=== PATIENT | female | born 1935 | race Caucasian/White ===

== ENCOUNTER → 2016-08-20 | Outpatient (CLI) | payer MEDICARE, OTHER ==
[~2016-08-20] MED LIST: ALDACTONE50 MG PO; ALLEGRA 60MG TA60 MG PO; ANTI-DIARRHEAL2 MG PO; ARICEPT10 MG PO; ASMANEX TW110 MCG/Ac IH; BENADRYL25 M2 PO; CRANBERRY FRUI405 MG PO; FISH OIL500 MG PO; FLEXERIL 1010 MG/TAB PO; GLUCOPHAGE1000 MG PO; GLUCOPHAGE500 MG/TAB PO; GLUCOTROL XL2.5 MG PO; LEVAQUIN 750MG750 M1 PO; LEVOXYL0.05 MG PO; LUTEIN20 M1 PO; MILK THISTLE150 MG PO; NAMENDA 10MG TA10 MG PO; NATURAL IRON65 MG PO; NATURE'S BLEND M3 MG PO; PRENATAL1 TA7 PO; PROAIR HFA0.09 MG/AC IH; PROTONIX 40MG T40 MG PO; REMERON30 MG PO; RESTORIL 1515 MG/CAP PO; TIROSINT75 MC1 PO; TIROSINT75 MCG PO; TRIMPEX100 MG PO; TYLENOL 325MG325 MG PO; VIIBRYD10 MG PO
== END ==
LOC: COL.RAD 10:27
DX: K74.60 Unspecified cirrhosis of liver (principal); R16.1 Splenomegaly, not elsewhere classified; R63.4 Abnormal weight loss; E11.9 Type 2 diabetes mellitus without complications; R18.8 Other ascites
CPT/HCPCS: Q9967

== ENCOUNTER 2017-10-29 14:12 | Outpatient (RCR) | payer MEDICARE, OTHER ==
[~2017-10-29 14:12] MED LIST changes: +CARAFATE 1GM1 G PO; +MACROBID 1100 MG/CAP PO; +MASON NATURAL2000 IU; +NASACORT OTC NS
== END 2017-11-07 15:53 | disposition home or self-care (01) ==
LOC: MKS.ESL.PT 14:12
DX: R42 Dizziness and giddiness (principal)
CPT/HCPCS: G8990-GP; G8991-GP; G8992-GP

== ENCOUNTER 2018-01-23 04:42 | Emergency (ER) | payer MEDICARE, OTHER ==
[~2018-01-23] VITALS: Ht 162.6 cm; Wt 56.8 kg
[2018-01-23 05:19] LABS: HEMOGLOBIN 11.3 g/dl (12.5-16.0); MEAN CELL VOLUME 87 fl (80.0-100.0); MEAN CORPUSCULAR HEMOGLOBIN 29 pg (27.0-31.0); MEAN CORPUSCULAR HGB CONC 34 g/dl (33.0-37.0); MEAN PLATELET VOLUME 11.3 fl (7.4-10.4); RED BLOOD COUNT 3.86 M/mm3 (4.10-5.30); REDCELL DISTRIBUTION WIDTH-CV 15.3 % (11.5-14.5)
[2018-01-23 05:27] LABS: ALBUMIN 3.6 gm/dL (3.5-5.0); CALCIUM 9.5 mg/dL (8.4-10.2); CREATININE, serum 0.83 mg/dL (0.52-1.25); TOTAL PROTEIN 6.5 gm/dL (6.4-8.2)
[2018-01-23 05:30] LABS: HEMATOCRIT 33.6 % (37.0-47.0)
[2018-01-23 05:31] LABS: PLATELET COUNT 32 K/mm3 (130-400)
[2018-01-23 05:52] LABS: BAND 3 % (0-10); BASOPHIL 2 % (0-2); HYPOCHROMIA 1+; LYMPHOCYTE 10 % (20.0-51.0); NEUTROPHILS 73 % (42.0-75.2)
[2018-01-23 05:53] LABS: PLATELET ESTIMATE DECREASED (NORMAL)
[2018-01-23] MEDS ORDERED: RESTORIL 1515 MG/CAP PO (05:59)
[2018-01-23 06:17] LABS: COLLECTION METHOD CATHETER
[2018-01-23 06:28] LABS: MUCOUS Present /lpf; PH 5 (5-8); SQUAMOUS EPITHELIAL 0-2 /hpf; URINE APPEARANCE Hazy; URINE BACTERIA Many /hpf; URINE BILIRUBIN Negative (NEGATIVE); URINE BLOOD Negative (NEGATIVE); URINE COLOR Yellow; URINE GLUCOSE Negative (NEGATIVE); URINE KETONE Trace (NEGATIVE); URINE LEUKOCYTE ESTERASE Trace (NEGATIVE); URINE NITRATE Positive (NEGATIVE); URINE PROTEIN(semi-quant) 1+ (NEGATIVE)
[2018-01-23 06:29] LABS: INR 1.3 (0.8-3.0); PROTHROMBIN TIME 14.5 SECONDS (9.7-12.8)
[2018-01-23 08:15] VITALS: BP 165/85; PULSE 86
== END 2018-01-23 08:23 | disposition short-term general hospital (02) ==
LOC: COL.ER 04:42
PROVIDERS: Emergency Medicine
DX: N39.0 Urinary tract infection, site not specified (principal); M25.551 Pain in right hip; R74.0 Nonspecific elevation of levels of transaminase and lactic acid dehydrogenase [LDH]; Z79.84 Long term (current) use of oral hypoglycemic drugs; G30.9 Alzheimer's disease, unspecified; F02.80 Dementia in other diseases classified elsewhere, unspecified severity, without behavioral disturbance, psychotic disturbance, mood disturbance, and anxiety; W18.39XA Other fall on same level, initial encounter
CPT/HCPCS: J0696; J7030

== ENCOUNTER → 2018-02-13 | Outpatient (CLI) | payer MEDICARE, OTHER ==
[2018-02-13 10:08] LABS: CREATININE, serum 0.92 mg/dL (0.52-1.25)
== END ==
LOC: ZCOL.LAB 09:43
PROVIDERS: Internal Medicine
DX: K74.60 Unspecified cirrhosis of liver (principal)

== ENCOUNTER → 2018-03-20 | Outpatient (CLI) | payer MEDICARE, OTHER | LOC: COL.VAS 09:22 | DX: I35.8 Other nonrheumatic aortic valve disorders (principal); I51.89 Other ill-defined heart diseases ==

== ENCOUNTER 2018-03-25 14:19 | Outpatient (RCR) | payer MEDICARE, OTHER ==
[~2018-03-25 14:19] MED LIST changes: +ALLEGRA 180MG180 MG PO; -ALLEGRA 60MG TA60 MG PO; +CRANBERRY 100 M1 SGL PO; -CRANBERRY FRUI405 MG PO; +FEOSOL45 MG PO; -MASON NATURAL2000 IU; +MASON NATURAL2000 IU PO; -NATURAL IRON65 MG PO
[2018-04-25] MEDS ORDERED: KRILL OIL 3001 EACH PO (21:52)
[2018-04-25] MEDS ORDERED: [UNRECOGNIZED DRUG - OTHER] (21:58)
[2018-04-26] MEDS ORDERED: Slow Fe PO (01:15)
[2018-04-28] MEDS ORDERED: OMNICEF 300MG300 MG PO ×2 (11:52)
[2018-04-29] MEDS ORDERED: CALTRATE-600 W600 MG PO (20:58)
[2018-04-29] MEDS ORDERED: CALCIUM CARBON500 M1 PO (23:47)
[2018-04-29] MEDS ORDERED: MELATIN 3 MG-11 TAB PO (23:48)
[2018-04-29] MEDS ORDERED: PROAIR HFA0.09 MG/AC IH (23:49)
[2018-06-04] MEDS ORDERED: MACROBID 1100 MG/CAP PO (20:57)
[2018-06-05] MEDS ORDERED: FLEXERIL 1010 MG/TAB PO (00:16)
[2018-06-05] MEDS ORDERED: CALTRATE-600 W600 MG PO (00:18)
[2018-06-05] MEDS ORDERED: FLAGYL500 MG PO (15:50)
[2018-06-05] MEDS ORDERED: CIPRO 500MG TA500 MG PO (15:51)
== END 2018-06-23 | disposition home or self-care (01) ==
LOC: MKS.ESL.PT
DX: R42 Dizziness and giddiness (principal); F03.90 Unspecified dementia, unspecified severity, without behavioral disturbance, psychotic disturbance, mood disturbance, and anxiety
CPT/HCPCS: G8978-GP; G8979-GP; G8980-GP

== ENCOUNTER 2018-04-25 21:34 | Inpatient (IN) | payer MEDICARE ==
[~2018-04-25] VITALS: Ht 162.6 cm; Wt 61.0 kg
[2018-04-25 21:51] LABS: COLLECTION METHOD CLEAN CATCH
[2018-04-25] MEDS ORDERED: KRILL OIL 3001 EACH PO (21:52)
[2018-04-25] MEDS ORDERED: [UNRECOGNIZED DRUG - OTHER] (21:58)
[2018-04-25 22:04] LABS: MUCOUS Present /lpf; PH 6 (5-8); SQUAMOUS EPITHELIAL None Seen /hpf; URINE APPEARANCE Hazy; URINE BACTERIA Rare /hpf; URINE BILIRUBIN Negative (NEGATIVE); URINE BLOOD Negative (NEGATIVE); URINE COLOR Yellow; URINE GLUCOSE Negative (NEGATIVE); URINE KETONE Negative (NEGATIVE); URINE LEUKOCYTE ESTERASE 1+ (NEGATIVE); URINE NITRATE Positive (NEGATIVE); URINE PROTEIN(semi-quant) 1+ (NEGATIVE); URINE UROBILINOGEN >=4.0 mg/dL (NEGATIVE)
[2018-04-25 22:37] LABS: INR 1.2 (0.8-3.0); PROTHROMBIN TIME 13.3 SECONDS (9.7-12.8)
[2018-04-25 22:40] LABS: PARTIAL THROMBOPLASTIN TIME 17.9 SECONDS (26.0-37.0)
[2018-04-25 22:42] LABS: ALANINE AMINOTRANSFERASE 48 U/L (9-52); ALBUMIN 3.7 gm/dL (3.5-5.0); ALKALINE PHOSPHATASE 78 U/L (50-136); ANION GAP 12 mmol/L (7-16); AST,SGOT 40 U/L (15-37); BILIRUBIN,TOTAL 2.4 mg/dL (0.0-1.0); BLOOD UREA NITROGEN 26 mg/dL (7-17); CALCIUM 9.3 mg/dL (8.4-10.2); CARBON DIOXIDE 20 mmol/L (22-30); CHLORIDE 104 mmol/L (98-107); CREATININE, serum 0.78 mg/dL (0.52-1.25); GLUCOSE 207 mg/dL (74-106); LIPASE 252 U/L (23-300); SODIUM 136 mmol/L (137-145); TOTAL PROTEIN 6.7 gm/dL (6.4-8.2)
[2018-04-25 22:49] LABS: AMMONIA 47 umol/L (11-35)
[2018-04-25 22:55] LABS: BASO % 0.3 % (0.0-2.0); GRAN # 6.9 (1.4-6.5); GRAN % 88.1 % (42.2-75.2); HEMATOCRIT 34.8 % (37.0-47.0); HEMOGLOBIN 11.7 g/dl (12.5-16.0); LYMPH # 0.3 (1.2-3.4); LYMPH % 3.8 % (20.0-51.0); MEAN CELL VOLUME 90 fl (80.0-100.0); MEAN CORPUSCULAR HEMOGLOBIN 30 pg (27.0-31.0); MEAN CORPUSCULAR HGB CONC 34 g/dl (33.0-37.0); MEAN PLATELET VOLUME 11.3 fl (7.4-10.4); MONO # 0.6 (0.1-0.6); MONO % 7.4 % (1.7-9.3); PLATELET COUNT 34 K/mm3 (130-400); RED BLOOD COUNT 3.89 M/mm3 (4.10-5.30); REDCELL DISTRIBUTION WIDTH-CV 14.9 % (11.5-14.5)
[2018-04-25 22:55] LABS: TROPONIN-I < 0.012 ng/mL (0.000-0.034)
[2018-04-26] VITALS (380 sets, daily range): BP systolic 110–144; BP diastolic 48–62; PULSE 76–101; TEMP 98.4–100.2; O2SAT 59–100
[2018-04-26] MEDS ORDERED: Slow Fe PO (01:15)
[2018-04-26 02:31] LABS: ARTERIAL BLD GAS O2 SATURATION 96.2 % (92-100); ARTERIAL BLD GAS TCO2 CT 17.7; ARTERIAL BLOOD GAS BASE EXCESS -5.6 (-2-2); ARTERIAL BLOOD GAS HCO3 16.9 meq/L (22-26); ARTERIAL BLOOD GAS PCO2 24.8 mmHg (35-45); ARTERIAL BLOOD GAS PO2 89.4 mmHg (80-100); ARTERIAL BLOOD GAS pH 7.45 (7.35-7.45)
[2018-04-26 05:25] LABS: BASO % 0.5 % (0.0-2.0); GRAN # 4.8 (1.4-6.5); GRAN % 83.9 % (42.2-75.2); LYMPH # 0.3 (1.2-3.4); MEAN CELL VOLUME 90 fl (80.0-100.0); MEAN CORPUSCULAR HEMOGLOBIN 30 pg (27.0-31.0); MEAN CORPUSCULAR HGB CONC 33 g/dl (33.0-37.0); MEAN PLATELET VOLUME 10.9 fl (7.4-10.4); MONO # 0.5 (0.1-0.6); MONO % 9.2 % (1.7-9.3); RED BLOOD COUNT 3.33 M/mm3 (4.10-5.30); REDCELL DISTRIBUTION WIDTH-CV 14.8 % (11.5-14.5)
[2018-04-26 05:27] LABS: HEMATOCRIT 30.1 % (37.0-47.0)
[2018-04-26 05:29] LABS: PLATELET COUNT 29 K/mm3 (130-400)
[2018-04-26 05:37] LABS: INR 1.4 (0.8-3.0)
[2018-04-26 05:43] LABS: ALBUMIN 2.6 gm/dL (3.5-5.0); CALCIUM 8.4 mg/dL (8.4-10.2); CREATININE, serum 0.73 mg/dL (0.52-1.25); POTASSIUM 3.8 mmol/L (3.4-5.0)
[2018-04-27 04:03] VITALS: BP 126/54; PULSE 80; TEMP 98.4
[2018-04-27 06:01] LABS: BASO % 0.7 % (0.0-2.0); GRAN # 3.3 (1.4-6.5); GRAN % 76.5 % (42.2-75.2); LYMPH # 0.5 (1.2-3.4); LYMPH % 10.6 % (20.0-51.0); MEAN CELL VOLUME 91 fl (80.0-100.0); MEAN CORPUSCULAR HGB CONC 33 g/dl (33.0-37.0); MEAN PLATELET VOLUME 11.6 fl (7.4-10.4); MONO # 0.5 (0.1-0.6); RED BLOOD COUNT 3.24 M/mm3 (4.10-5.30); REDCELL DISTRIBUTION WIDTH-CV 15.2 % (11.5-14.5)
[2018-04-27 06:03] LABS: HEMATOCRIT 29.4 % (37.0-47.0); HEMOGLOBIN 9.7 g/dl (12.5-16.0); MEAN CORPUSCULAR HEMOGLOBIN 30 pg (27.0-31.0)
[2018-04-27 06:04] LABS: PLATELET COUNT 28 K/mm3 (130-400)
[2018-04-27 06:30] LABS: INR 1.4 (0.8-3.0); PROTHROMBIN TIME 16.3 SECONDS (9.7-12.8)
[2018-04-27 06:32] LABS: ALBUMIN 2.6 gm/dL (3.5-5.0); BILIRUBIN,TOTAL 1.5 mg/dL (0.0-1.0); CALCIUM 8.1 mg/dL (8.4-10.2); CREATININE, serum 0.77 mg/dL (0.52-1.25); POTASSIUM 3.6 mmol/L (3.4-5.0); TOTAL PROTEIN 5.3 gm/dL (6.4-8.2)
[2018-04-27 08:17] VITALS: BP 127/44; PULSE 81; TEMP 98.2
[2018-04-27 11:36] VITALS: BP 125/42; PULSE 76; TEMP 97.2
[2018-04-27 16:55] VITALS: BP 131/46; PULSE 92; TEMP 98.7
[2018-04-27 19:48] VITALS: BP 135/60; PULSE 94; TEMP 98.5
[2018-04-28 01:14] VITALS: BP 132/75; PULSE 77; TEMP 98.5
[2018-04-28 04:34] VITALS: BP 105/50; PULSE 84; TEMP 98.2
[2018-04-28 06:33] LABS: BASO % 0.9 % (0.0-2.0); GRAN # 2.7 (1.4-6.5); GRAN % 78.5 % (42.2-75.2); LYMPH # 0.4 (1.2-3.4); LYMPH % 10.4 % (20.0-51.0); MEAN CELL VOLUME 90 fl (80.0-100.0); MEAN CORPUSCULAR HGB CONC 33 g/dl (33.0-37.0); MEAN PLATELET VOLUME 11.4 fl (7.4-10.4); MONO # 0.3 (0.1-0.6); MONO % 9.9 % (1.7-9.3); RED BLOOD COUNT 3.24 M/mm3 (4.10-5.30); REDCELL DISTRIBUTION WIDTH-CV 14.7 % (11.5-14.5)
[2018-04-28 06:40] LABS: INR 1.3 (0.8-3.0); PROTHROMBIN TIME 14.6 SECONDS (9.7-12.8)
[2018-04-28 06:41] LABS: ALBUMIN 2.5 gm/dL (3.5-5.0); CREATININE, serum 0.85 mg/dL (0.52-1.25); POTASSIUM 3.8 mmol/L (3.4-5.0); TOTAL PROTEIN 5.2 gm/dL (6.4-8.2)
[2018-04-28 07:01] VITALS: BP 144/60; PULSE 90; TEMP 98
[2018-04-28 08:05] LABS: HEMATOCRIT 29.1 % (37.0-47.0); HEMOGLOBIN 9.5 g/dl (12.5-16.0); MEAN CORPUSCULAR HEMOGLOBIN 29 pg (27.0-31.0); PLATELET COUNT 33 K/mm3 (130-400)
[2018-04-28 11:06] VITALS: BP 127/53; PULSE 85; TEMP 98.3
[2018-04-28] MEDS ORDERED: OMNICEF 300MG300 MG PO ×2 (11:52)
[2018-04-29] MEDS ORDERED: CALTRATE-600 W600 MG PO (20:58)
[2018-04-29] MEDS ORDERED: CALCIUM CARBON500 M1 PO (23:47)
[2018-04-29] MEDS ORDERED: MELATIN 3 MG-11 TAB PO (23:48)
[2018-04-29] MEDS ORDERED: PROAIR HFA0.09 MG/AC IH (23:49)
== END 2018-04-28 13:55 | disposition home health service (06) | DRG 871 ==
LOC: COL.ER 21:34 → ICU 23:10 → MEDICAL 23:10 → EDBEDREQ 23:30 → MEDICAL 04-26 17:38
PROVIDERS: Emergency Medicine; Nurse Practitioner Family
DX: A41.9 Sepsis, unspecified organism (principal); G93.41 Metabolic encephalopathy; N39.0 Urinary tract infection, site not specified; I85.10 Secondary esophageal varices without bleeding; E87.2 Acidosis; Z66 Do not resuscitate; R65.20 Severe sepsis without septic shock; B96.20 Unspecified Escherichia coli [E. coli] as the cause of diseases classified elsewhere; E11.9 Type 2 diabetes mellitus without complications; D69.59 Other secondary thrombocytopenia; K74.60 Unspecified cirrhosis of liver; J45.909 Unspecified asthma, uncomplicated; F03.90 Unspecified dementia, unspecified severity, without behavioral disturbance, psychotic disturbance, mood disturbance, and anxiety; Z85.3 Personal history of malignant neoplasm of breast
CPT/HCPCS: 99223-AI; 99231-AI; 99239; A4216; A4314; J0692; J0696; J1815; J7030

== ENCOUNTER 2018-04-29 19:38 | Observation (INO) | payer MEDICARE ==
[~2018-04-29] VITALS: Ht 162.6 cm; Wt 56.8 kg
[~2018-04-29 19:38] MED LIST changes: +KRILL OIL 3001 EACH PO; +OMNICEF 300MG300 MG PO; +Slow Fe PO; +[UNRECOGNIZED DRUG - OTHER]
[2018-04-29 20:08] LABS: BASO % 0.3 % (0.0-2.0); GRAN # 5.9 (1.4-6.5); GRAN % 87.1 % (42.2-75.2); HEMOGLOBIN 10.2 g/dl (12.5-16.0); LYMPH # 0.2 (1.2-3.4); LYMPH % 3.5 % (20.0-51.0); MEAN CELL VOLUME 90 fl (80.0-100.0); MEAN CORPUSCULAR HEMOGLOBIN 30 pg (27.0-31.0); MEAN CORPUSCULAR HGB CONC 33 g/dl (33.0-37.0); MEAN PLATELET VOLUME 10.7 fl (7.4-10.4); MONO # 0.6 (0.1-0.6); MONO % 8.5 % (1.7-9.3); RED BLOOD COUNT 3.44 M/mm3 (4.10-5.30); REDCELL DISTRIBUTION WIDTH-CV 14.9 % (11.5-14.5)
[2018-04-29 20:09] LABS: HEMATOCRIT 30.9 % (37.0-47.0)
[2018-04-29 20:11] LABS: PLATELET COUNT 44 K/mm3 (130-400)
[2018-04-29 20:19] LABS: BILIRUBIN,TOTAL 1.9 mg/dL (0.0-1.0); C-REACTIVE PROTEIN 4.6 mg/dL (0.0-0.9); CALCIUM 8.8 mg/dL (8.4-10.2); CREATININE, serum 0.83 mg/dL (0.52-1.25); POTASSIUM 4.1 mmol/L (3.4-5.0); TOTAL PROTEIN 5.7 gm/dL (6.4-8.2)
[2018-04-29] MEDS ORDERED: CALTRATE-600 W600 MG PO (20:58)
[2018-04-29] MEDS ORDERED: CALCIUM CARBON500 M1 PO (23:47)
[2018-04-29] MEDS ORDERED: MELATIN 3 MG-11 TAB PO (23:48)
[2018-04-29] MEDS ORDERED: PROAIR HFA0.09 MG/AC IH (23:49)
[2018-04-30 02:14] LABS: INR 1.2 (0.8-3.0); PROTHROMBIN TIME 14.1 SECONDS (9.7-12.8)
[2018-04-30 04:40] VITALS: BP 126/68; PULSE 84; TEMP 99.2
[2018-04-30 04:55] LABS: COLLECTION METHOD CLEAN CATCH
[2018-04-30 05:07] LABS: MUCOUS Present /lpf; PH 5 (5-8); SQUAMOUS EPITHELIAL None Seen /hpf; URINE APPEARANCE Clear; URINE BACTERIA None Seen /hpf; URINE BILIRUBIN Negative (NEGATIVE); URINE BLOOD Negative (NEGATIVE); URINE COLOR Amber; URINE GLUCOSE 1+ (NEGATIVE); URINE KETONE Trace (NEGATIVE); URINE LEUKOCYTE ESTERASE Negative (NEGATIVE); URINE NITRATE Negative (NEGATIVE); URINE PROTEIN(semi-quant) 1+ (NEGATIVE); URINE RBC 20-50 /hpf
[2018-04-30 07:18] VITALS: BP 117/52; PULSE 89; TEMP 99.8
[2018-04-30 12:39] VITALS: BP 105/57; PULSE 72; TEMP 98.9
[2018-04-30 15:25] VITALS: BP 125/56; PULSE 80; TEMP 97.8
[2018-04-30 19:20] VITALS: BP 111/47; PULSE 82; TEMP 99.3
[2018-05-01 00:17] VITALS: BP 122/50; PULSE 85
[2018-05-01 03:25] VITALS: BP 125/54; TEMP 99.2
[2018-05-01 07:25] VITALS: BP 113/51; PULSE 80; TEMP 98.5
[2018-05-01 07:55] LABS: BASO % 0.7 % (0.0-2.0); GRAN # 2.1 (1.4-6.5); GRAN % 75.3 % (42.2-75.2); LYMPH # 0.3 (1.2-3.4); LYMPH % 10.7 % (20.0-51.0); MEAN CELL VOLUME 90 fl (80.0-100.0); MEAN CORPUSCULAR HGB CONC 33 g/dl (33.0-37.0); MEAN PLATELET VOLUME 11.2 fl (7.4-10.4); MONO # 0.4 (0.1-0.6); MONO % 12.9 % (1.7-9.3); RED BLOOD COUNT 2.94 M/mm3 (4.10-5.30)
[2018-05-01 07:57] LABS: HEMOGLOBIN 8.8 g/dl (12.5-16.0); MEAN CORPUSCULAR HEMOGLOBIN 30 pg (27.0-31.0)
[2018-05-01 07:58] LABS: HEMATOCRIT 26.4 % (37.0-47.0); PLATELET COUNT 35 K/mm3 (130-400)
[2018-05-01 08:07] LABS: CALCIUM 7.8 mg/dL (8.4-10.2); CREATININE, serum 0.86 mg/dL (0.52-1.25); POTASSIUM 4.1 mmol/L (3.4-5.0)
[2018-05-01 12:47] VITALS: BP 121/59; PULSE 74; TEMP 98.7
[2018-05-01 16:08] VITALS: BP 121/59; PULSE 74; TEMP 98.7
== END 2018-05-01 16:44 ==
LOC: COL.ER 19:38 → MEDICAL 20:38
PROVIDERS: Family Medicine; Nurse Practitioner; Physician Assistant
DX: E87.2 Acidosis (principal); N39.0 Urinary tract infection, site not specified; R53.81 Other malaise; G93.41 Metabolic encephalopathy; D69.6 Thrombocytopenia, unspecified; K74.69 Other cirrhosis of liver; E11.9 Type 2 diabetes mellitus without complications; F03.90 Unspecified dementia, unspecified severity, without behavioral disturbance, psychotic disturbance, mood disturbance, and anxiety; J45.909 Unspecified asthma, uncomplicated; E03.9 Hypothyroidism, unspecified; K21.9 Gastro-esophageal reflux disease without esophagitis; F32.9 Major depressive disorder, single episode, unspecified; F41.9 Anxiety disorder, unspecified; Z88.0 Allergy status to penicillin; Z91.040 Latex allergy status; Z79.4 Long term (current) use of insulin; Z23 Encounter for immunization; Z90.49 Acquired absence of other specified parts of digestive tract; Z90.10 Acquired absence of unspecified breast and nipple; Z85.3 Personal history of malignant neoplasm of breast; Z85.828 Personal history of other malignant neoplasm of skin; Z80.0 Family history of malignant neoplasm of digestive organs; Z82.49 Family history of ischemic heart disease and other diseases of the circulatory system
CPT/HCPCS: A4216; G0378; G8978-GP; G8979-GP; G8987-GO; G8988-GO; G9168-GN; G9169-GN; J0692; J0696; J1815; J2405; J7030; Q9967

== ENCOUNTER → 2018-05-09 | Outpatient (REF) ==
[~2018-05-09] MED LIST changes: +CALCIUM CARBON500 M1 PO; +CALTRATE-600 W600 MG PO; +MELATIN 3 MG-11 TAB PO
== END ==
LOC: ZCOL.LAB 15:30
DX: K59.8 Other specified functional intestinal disorders (principal); R19.7 Diarrhea, unspecified; R53.81 Other malaise

== ENCOUNTER → 2018-05-09 | Outpatient (CLI) | payer MEDICARE | LOC: ZCOL.LAB 16:09 | DX: K59.8 Other specified functional intestinal disorders (principal); R19.7 Diarrhea, unspecified; R53.81 Other malaise ==

== ENCOUNTER → 2018-05-21 | Outpatient (CLI) | payer MEDICARE, OTHER | LOC: COL.RAD 08:44 | DX: K74.60 Unspecified cirrhosis of liver (principal); K76.6 Portal hypertension; R16.1 Splenomegaly, not elsewhere classified; Z87.440 Personal history of urinary (tract) infections | CPT/HCPCS: 31860; A4314 ==

== ENCOUNTER 2018-06-04 19:03 | Observation (INO) | payer MEDICARE, OTHER ==
[~2018-06-04] VITALS: Ht 162.6 cm; Wt 56.8 kg
[2018-06-04 19:39] LABS: BASO % 0.4 % (0.0-2.0); GRAN % 86.3 % (42.2-75.2); LYMPH # 0.3 (1.2-3.4); LYMPH % 4.7 % (20.0-51.0); MEAN CELL VOLUME 87 fl (80.0-100.0); MEAN CORPUSCULAR HEMOGLOBIN 29 pg (27.0-31.0); MEAN CORPUSCULAR HGB CONC 33 g/dl (33.0-37.0); MEAN PLATELET VOLUME 11.6 fl (7.4-10.4); MONO # 0.6 (0.1-0.6); MONO % 8.3 % (1.7-9.3); REDCELL DISTRIBUTION WIDTH-CV 14.6 % (11.5-14.5)
[2018-06-04 19:42] LABS: COLLECTION METHOD CATHETER
[2018-06-04 19:44] LABS: HEMATOCRIT 33.1 % (37.0-47.0)
[2018-06-04 19:46] LABS: PLATELET COUNT 30 K/mm3 (130-400)
[2018-06-04 19:47] LABS: PH 7 (5-8); SQUAMOUS EPITHELIAL 0-2 /hpf; URINE APPEARANCE Clear; URINE BACTERIA None Seen /hpf; URINE BILIRUBIN Negative (NEGATIVE); URINE BLOOD Negative (NEGATIVE); URINE COLOR Yellow; URINE GLUCOSE Negative (NEGATIVE); URINE KETONE Negative (NEGATIVE); URINE LEUKOCYTE ESTERASE Negative (NEGATIVE); URINE NITRATE Negative (NEGATIVE); URINE PROTEIN(semi-quant) 1+ (NEGATIVE); URINE RBC 0-2 /hpf; URINE UROBILINOGEN >=4.0 mg/dL (NEGATIVE)
[2018-06-04 19:48] LABS: ALBUMIN 3.3 gm/dL (3.5-5.0); BILIRUBIN,TOTAL 2.7 mg/dL (0.0-1.0); C-REACTIVE PROTEIN 3.1 mg/dL (0.0-0.9); CALCIUM 8.8 mg/dL (8.4-10.2); CREATININE, serum 0.92 mg/dL (0.52-1.25); POTASSIUM 4.3 mmol/L (3.4-5.0)
[2018-06-04] MEDS ORDERED: MACROBID 1100 MG/CAP PO (20:57)
[2018-06-04 22:43] LABS: INR 1.4 (0.8-3.0)
[2018-06-04 23:22] VITALS: BP 111/38; PULSE 65; TEMP 97.6
[2018-06-05] MEDS ORDERED: FLEXERIL 1010 MG/TAB PO (00:16)
[2018-06-05] MEDS ORDERED: CALTRATE-600 W600 MG PO (00:18)
[2018-06-05 04:42] VITALS: BP 129/45; PULSE 64; TEMP 97.6
[2018-06-05 06:21] LABS: BASO % 0.7 % (0.0-2.0); GRAN % 74.7 % (42.2-75.2); LYMPH # 0.4 (1.2-3.4); LYMPH % 13.9 % (20.0-51.0); MEAN CELL VOLUME 91 fl (80.0-100.0); MEAN CORPUSCULAR HGB CONC 32 g/dl (33.0-37.0); MEAN PLATELET VOLUME 12.1 fl (7.4-10.4); MONO # 0.3 (0.1-0.6); MONO % 10.3 % (1.7-9.3); RED BLOOD COUNT 3.31 M/mm3 (4.10-5.30); REDCELL DISTRIBUTION WIDTH-CV 14.6 % (11.5-14.5)
[2018-06-05 06:24] LABS: HEMATOCRIT 30.1 % (37.0-47.0); HEMOGLOBIN 9.7 g/dl (12.5-16.0); MEAN CORPUSCULAR HEMOGLOBIN 29 pg (27.0-31.0)
[2018-06-05 06:26] LABS: PLATELET COUNT 25 K/mm3 (130-400)
[2018-06-05 06:31] LABS: ALBUMIN 2.6 gm/dL (3.5-5.0); BILIRUBIN,TOTAL 1.6 mg/dL (0.0-1.0); CALCIUM 8.2 mg/dL (8.4-10.2); CREATININE, serum 0.86 mg/dL (0.52-1.25); POTASSIUM 3.7 mmol/L (3.4-5.0); TOTAL PROTEIN 5.3 gm/dL (6.4-8.2)
[2018-06-05 07:38] VITALS: BP 105/43; PULSE 67; TEMP 98.1
[2018-06-05 11:18] VITALS: BP 111/44; PULSE 67; TEMP 98.8
[2018-06-05] MEDS ORDERED: FLAGYL500 MG PO (15:50)
[2018-06-05] MEDS ORDERED: CIPRO 500MG TA500 MG PO (15:51)
[2018-06-05 16:39] VITALS: BP 106/36; PULSE 72; TEMP 98.4
== END 2018-06-05 20:00 | disposition home or self-care (01) ==
LOC: COL.ER 19:03 → MEDICAL 21:51
PROVIDERS: Emergency Medicine; Nurse Practitioner Family
DX: K74.60 Unspecified cirrhosis of liver (principal); I85.10 Secondary esophageal varices without bleeding; D69.6 Thrombocytopenia, unspecified; E11.9 Type 2 diabetes mellitus without complications; E03.9 Hypothyroidism, unspecified; F03.90 Unspecified dementia, unspecified severity, without behavioral disturbance, psychotic disturbance, mood disturbance, and anxiety; N39.0 Urinary tract infection, site not specified; R53.81 Other malaise; D53.9 Nutritional anemia, unspecified; Z90.49 Acquired absence of other specified parts of digestive tract; Z90.10 Acquired absence of unspecified breast and nipple; Z90.710 Acquired absence of both cervix and uterus; Z79.84 Long term (current) use of oral hypoglycemic drugs; Z88.0 Allergy status to penicillin; Z91.040 Latex allergy status; Z82.49 Family history of ischemic heart disease and other diseases of the circulatory system; Z80.0 Family history of malignant neoplasm of digestive organs
CPT/HCPCS: G0378; G8978-GP; G8979-GP; G8987-GO; G8988-GO; J0696; J1815; J7030; Q9967

== ENCOUNTER 2018-07-21 19:10 | Emergency (ER) | payer MEDICARE, OTHER ==
[~2018-07-21] VITALS: Ht 165.1 cm; Wt 56.8 kg
[~2018-07-21 19:10] MED LIST changes: +CIPRO 500MG TA500 MG PO; +FLAGYL500 MG PO
[2018-07-21 19:14] VITALS: TEMP 99.8
[2018-07-21 19:52] LABS: BASO % 0.3 % (0.0-2.0); GRAN # 5.6 (1.4-6.5); GRAN % 87.4 % (42.2-75.2); HEMOGLOBIN 11.2 g/dl (12.5-16.0); LYMPH # 0.3 (1.2-3.4); LYMPH % 4.2 % (20.0-51.0); MEAN CELL VOLUME 86 fl (80.0-100.0); MEAN CORPUSCULAR HEMOGLOBIN 29 pg (27.0-31.0); MEAN CORPUSCULAR HGB CONC 34 g/dl (33.0-37.0); MEAN PLATELET VOLUME 11.6 fl (7.4-10.4); MONO # 0.5 (0.1-0.6); MONO % 7.5 % (1.7-9.3); RED BLOOD COUNT 3.86 M/mm3 (4.10-5.30); REDCELL DISTRIBUTION WIDTH-CV 15.6 % (11.5-14.5)
[2018-07-21 20:07] LABS: LACTIC ACID 1.5 mmol/L (0.4-2.0)
[2018-07-21 20:09] LABS: ALBUMIN 3.4 gm/dL (3.5-5.0); BILIRUBIN,TOTAL 2.4 mg/dL (0.0-1.0); C-REACTIVE PROTEIN 4.5 mg/dL (0.0-0.9); CALCIUM 8.7 mg/dL (8.4-10.2); CREATININE, serum 1.08 mg/dL (0.52-1.25); POTASSIUM 4.5 mmol/L (3.4-5.0); TOTAL PROTEIN 6.3 gm/dL (6.4-8.2)
[2018-07-21 20:10] LABS: PLATELET COUNT 31 K/mm3 (130-400)
[2018-07-21 21:12] LABS: COLLECTION METHOD CATHETER
[2018-07-21 21:23] LABS: PH 6 (5-8); SQUAMOUS EPITHELIAL None Seen /hpf; URINE APPEARANCE Clear; URINE BACTERIA None Seen /hpf; URINE BILIRUBIN Negative (NEGATIVE); URINE BLOOD Negative (NEGATIVE); URINE COLOR Yellow; URINE GLUCOSE 3+ (NEGATIVE); URINE KETONE Trace (NEGATIVE); URINE LEUKOCYTE ESTERASE Negative (NEGATIVE); URINE NITRATE Negative (NEGATIVE); URINE PROTEIN(semi-quant) Negative (NEGATIVE); URINE RBC 0-2 /hpf; URINE UROBILINOGEN Negative (NEGATIVE)
[2018-07-21 21:54] VITALS: BP 105/59; PULSE 72
== END 2018-07-21 22:31 | disposition home or self-care (01) ==
LOC: COL.ER 19:10
PROVIDERS: Emergency Medicine
DX: R50.9 Fever, unspecified (principal); R41.0 Disorientation, unspecified; E11.9 Type 2 diabetes mellitus without complications; Z87.440 Personal history of urinary (tract) infections; F03.90 Unspecified dementia, unspecified severity, without behavioral disturbance, psychotic disturbance, mood disturbance, and anxiety; Z79.84 Long term (current) use of oral hypoglycemic drugs
CPT/HCPCS: J0696; J7050

== ENCOUNTER 2018-10-25 22:20 | Inpatient (IN) | payer MEDICARE, OTHER ==
[~2018-10-25] VITALS: Ht 165.1 cm; Wt 56.5 kg
[~2018-10-25 22:20] MED LIST changes: +PRENATAL VITAMI1 TA3 PO; -PRENATAL1 TA7 PO
[2018-10-25] MEDS ORDERED: ONGLYZA2.5 MG PO (23:19)
[2018-10-25] MEDS ORDERED: PROAIR HFA0.09 MG/AC IH (23:35)
[2018-10-25] MEDS ORDERED: FEOSOL45 MG PO (23:39)
[2018-10-25] MEDS ORDERED: MILK THISTLE150 MG PO (23:40)
[2018-10-26] VITALS (502 sets, daily range): BP systolic 106–150; BP diastolic 49–78; PULSE 69–85; TEMP 97.2–98.6; O2SAT 34–100
[2018-10-26 00:58] LABS: BASO % 1.2 % (0.0-2.0); GRAN # 1.7 (1.4-6.5); GRAN % 66.2 % (42.2-75.2); HEMOGLOBIN 10.5 g/dl (12.5-16.0); INR 1.3 (0.8-3.0); LYMPH # 0.4 (1.2-3.4); LYMPH % 15.5 % (20.0-51.0); MEAN CELL VOLUME 90 fl (80.0-100.0); MEAN CORPUSCULAR HEMOGLOBIN 30 pg (27.0-31.0); MEAN CORPUSCULAR HGB CONC 34 g/dl (33.0-37.0); MEAN PLATELET VOLUME 11.2 fl (7.4-10.4); MONO # 0.4 (0.1-0.6); MONO % 16.7 % (1.7-9.3); PROTHROMBIN TIME 14.5 SECONDS (9.7-12.8); RED BLOOD COUNT 3.48 M/mm3 (4.10-5.30); REDCELL DISTRIBUTION WIDTH-CV 15.4 % (11.5-14.5)
[2018-10-26 01:00] LABS: PARTIAL THROMBOPLASTIN TIME 31.1 SECONDS (26.0-37.0)
[2018-10-26 01:04] LABS: ALANINE AMINOTRANSFERASE 29 U/L (9-52); ALBUMIN 3.4 gm/dL (3.5-5.0); ALKALINE PHOSPHATASE 62 U/L (50-136); ANION GAP 11 mmol/L (7-16); AST,SGOT 33 U/L (15-37); BILIRUBIN,TOTAL 1.3 mg/dL (0.0-1.0); BLOOD UREA NITROGEN 26 mg/dL (7-17); C-REACTIVE PROTEIN 1.1 mg/dL (0.0-0.9); CALCIUM 9.6 mg/dL (8.4-10.2); CARBON DIOXIDE 21 mmol/L (22-30); CHLORIDE 106 mmol/L (98-107); GLUCOSE 128 mg/dL (74-106); MAGNESIUM 1.7 mg/dL (1.6-2.3); PHOSPHOROUS 3.2 mg/dL (2.5-4.5); POTASSIUM 4.1 mmol/L (3.4-5.0); SODIUM 138 mmol/L (137-145)
[2018-10-26 01:09] LABS: HEMATOCRIT 31.3 % (37.0-47.0); PLATELET COUNT 35 K/mm3 (130-400)
[2018-10-26 01:11] LABS: COLLECTION METHOD CATHETER
[2018-10-26 01:14] LABS: TROPONIN-I < 0.012 ng/mL (0.000-0.035)
[2018-10-26 01:24] LABS: BUDDING YEAST Present /hpf; PH 5 (5-8); SQUAMOUS EPITHELIAL 0-2 /hpf; URINE APPEARANCE Clear; URINE BACTERIA None Seen /hpf; URINE BILIRUBIN Negative (NEGATIVE); URINE BLOOD Negative (NEGATIVE); URINE COLOR Amber; URINE GLUCOSE Negative (NEGATIVE); URINE KETONE Trace (NEGATIVE); URINE LEUKOCYTE ESTERASE 1+ (NEGATIVE); URINE NITRATE Negative (NEGATIVE); URINE PROTEIN(semi-quant) Negative (NEGATIVE)
[2018-10-26] MEDS ORDERED: CALCIUM CARBON650 M2 PO (02:49)
[2018-10-26] MEDS ORDERED: FORT1000TA PO (02:49)
--- NOTE | 2018-10-26 04:00 | NUR ---
Pt arrived from ER via stretcher. Transferred to bed. No acute distress noted. Daughter in law (DPOA) at bedside. Pts respirations even and unlabored. Lungs clear to auscultation. Abdomen soft, nontender. BS hyperactive. No edema noted. Pedal pulses equal 1+. Pt is alert and oriented. Pupils equal, 4mm with brisk reaction. Pt follows commands. House Decorator strong bilaterally. No neurological deficits noted. Pt denies nay pain at this time. Will continue to monitor.
--- NOTE | 2018-10-26 04:15 | NUR ---
Pt up with 1 assist to C with walker and gait belt. Pt is weak, but gait is steady during transfer. Pt voided hazy, yellow urine.
--- NOTE | 2018-10-26 05:15 | NUR ---
Pt up to BSC with 1 assist, walker and gait belt. Well tolerated by patient. Patient had large BM.
--- NOTE | 2018-10-26 05:30 | NUR ---
Pt up again to BSC with 1 assist. Well tolerated by patient. Patient has anal fissures, which daughter in law reported using diaper cream on at home. Barrier cream applied after pericare completed.
--- NOTE | 2018-10-26 06:30 | NUR ---
Pt up with 1 assist to BSC with walker and gait belt after short nap. Well tolerated by patient. No acute distress noted. VSS. Pt had large liquid stool. Barrier cream applied after pericare. No needs noted.
--- NOTE | 2018-10-26 07:30 | NUR ---
Report received from MEGAN Mills.
[2018-10-26 07:31] LABS: BASO % 1.3 % (0.0-2.0); GRAN # 1.7 (1.4-6.5); GRAN % 71.5 % (42.2-75.2); HEMOGLOBIN 10.9 g/dl (12.5-16.0); LYMPH # 0.4 (1.2-3.4); LYMPH % 15.3 % (20.0-51.0); MEAN CELL VOLUME 91 fl (80.0-100.0); MEAN CORPUSCULAR HEMOGLOBIN 30 pg (27.0-31.0); MEAN CORPUSCULAR HGB CONC 33 g/dl (33.0-37.0); MEAN PLATELET VOLUME 11.6 fl (7.4-10.4); MONO # 0.3 (0.1-0.6); MONO % 11.5 % (1.7-9.3); RED BLOOD COUNT 3.63 M/mm3 (4.10-5.30); REDCELL DISTRIBUTION WIDTH-CV 15.4 % (11.5-14.5)
--- NOTE | 2018-10-26 07:40 | NUR ---
Notified of critical platelet count. Waiting on BMP and lactic acid result before calling doctor.
[2018-10-26 07:44] LABS: PLATELET COUNT 36 K/mm3 (130-400)
[2018-10-26 07:45] LABS: CALCIUM 9.2 mg/dL (8.4-10.2); CREATININE, serum 0.78 (0.52-1.25)
--- NOTE | 2018-10-26 08:00 | NUR ---
Assesement completed. Pt A/Ox3. No complaints at this time. x1 assist to bedside commode with walker. Pt slightly weak but steady gait. Pt has had frequent BMs since lactulose dose received in ER. Pt back to bed. Pt refused breakfast at this time. Call light in reach.
--- NOTE | 2018-10-26 09:00 | NUR ---
Occupational therapy at bedside.
--- NOTE | 2018-10-26 12:59 | NUR ---
Pt watching tv and eating lunch in bed. No complaints at this time.VSS.
--- NOTE | 2018-10-26 13:24 | NUR ---
SW met with the patient's ctidakyv-er-zuv, Leslye Sherwood (DPOA-HC), to discuss discharge plan. As the patient was resting. The patient lives in [place] with her son (Kannan) and xhaakyjc-pk-hnv. Leslye Sherwood reports that she is the patient's primary caregiver. She reports that the patient primarily uses a walker and has a transport chair, ramps, and a showerchair. She states that they also have [employer] set up, in which there are cameras in the patient's room, kitchen, and bathroom to monitor the patient. The patient's fnzyxgno-bj-nbm reports that she works from [id number] and that her and her will then check the cameras frequently while they are at work. She states that Kannan will be retiring in 11 days and then he will be home at all times. They also have their store associate's daughter come out twice a week for an hour to do exercises with the patient. The patient's PCP is Dr. Denver Arroyo and she receives her medications at the [facility]. The patient's akrktjty-bx-vtf reports no difficulties obtaining her meds. The patient's DPOA-HC is in EMR. The patient's utntpvwk-il-nfi reports that the plan is for the patient to return back home with them upon discharge. No other identified needs at this time, but SW to continue to follow.
--- NOTE | 2018-10-26 19:40 | NUR ---
Report given to MEGAN Gilliam.
--- NOTE | 2018-10-26 21:00 | NUR ---
PT A&O X3. PT AMBULATES WELL WITH WALKER AND STANDY BY ASSIST TO COMMODE. PT HAS A MIX OF LOOSE STOOL AND SEMI-FORMED STOOL. URINE IS RENE IN COLOR AND HAS SOME SEDIMENT. PT CURRENTLY DENIES PAIN, BUT MENTIONS DISCOMFORT FROM BP CUFF AND IV. BP CUFF READJUSTED. IV ASSESSED; NO IRRITATION AND IS RUNNING IV FLUIDS WITH OUT ISSUE OR INFILTRATION.
[2018-10-27] VITALS (385 sets, daily range): BP systolic 102–154; BP diastolic 51–91; PULSE 77–90; TEMP 98.7–99.4; O2SAT 89–100
[2018-10-27 05:42] LABS: BASO % 0.7 % (0.0-2.0); GRAN # 3.6 (1.4-6.5); GRAN % 82.8 % (42.2-75.2); HEMATOCRIT 32.4 % (37.0-47.0); HEMOGLOBIN 10.8 g/dl (12.5-16.0); LYMPH # 0.3 (1.2-3.4); LYMPH % 7.3 % (20.0-51.0); MEAN CELL VOLUME 90 fl (80.0-100.0); MEAN CORPUSCULAR HEMOGLOBIN 30 pg (27.0-31.0); MEAN CORPUSCULAR HGB CONC 33 g/dl (33.0-37.0); MEAN PLATELET VOLUME 10.7 fl (7.4-10.4); MONO # 0.4 (0.1-0.6); MONO % 8.7 % (1.7-9.3); RED BLOOD COUNT 3.62 M/mm3 (4.10-5.30); REDCELL DISTRIBUTION WIDTH-CV 15.1 % (11.5-14.5)
[2018-10-27 05:43] LABS: PLATELET COUNT 41 K/mm3 (130-400)
[2018-10-27 05:56] LABS: ALBUMIN 3.1 gm/dL (3.5-5.0); BILIRUBIN,TOTAL 1.2 mg/dL (0.0-1.0); CALCIUM 8.7 mg/dL (8.4-10.2); CREATININE, serum 0.9 (0.52-1.25); POTASSIUM 4.1 mmol/L (3.4-5.0); TOTAL PROTEIN 5.7 gm/dL (6.4-8.2)
--- NOTE | 2018-10-27 06:32 | NUR ---
PT CALLED NURSE, STATES SHE'S LOST AND THINKS SHE'S IN THE WRONG ROOM. PT ANSWERS CORRECTLY MONTH/YEAR, CITY/STATE, PRES[place] OF [place], BIRTHDATE. PT REASSURED SHE'S IN THE RIGHT PLACE, IN THE HOSPITAL FOR UTI AND RECEIVING ANTIBIOTICS.
--- NOTE | 2018-10-27 07:10 | NUR ---
Patient report recieved from MEGAN Gilliam. Patient sleeping at this time. MIVF infusing at ordered rate to LW IV without complication noted. Care assumed.
--- NOTE | 2018-10-27 10:38 | NUR ---
First visit from the line erector. No needs right now.
--- NOTE | 2018-10-27 12:42 | NUR ---
Dr. Robertson rounds on patient at this time. POC discussed to include transfer to medical floor today. Orders as entered CPOE.
--- NOTE | 2018-10-27 15:05 | NUR ---
Report called to MEGAN Dunlap.
--- NOTE | 2018-10-27 15:11 | NUR ---
KATIA Negro updated to POC and patient transfer to medical room 310.
--- NOTE | 2018-10-27 15:20 | NUR ---
Patient transported to medical room 310. All belongings and chart sent withSiddharth Dunlap RN at bedside and care transferred.
--- NOTE | 2018-10-27 15:29 | NUR ---
Pt arrived to room 310 via with MEGAN Archuleta. Pt able to transfer from the to the floor bed with standby assitance. Oriented to room and call light system. Call light within reach, will continue to monitor.
--- NOTE | 2018-10-27 18:02 | NUR ---
Since arriving to floor the pt has been resting quietly. She has remained free of pain. She is sitting up in the bed watching TV at this time and she denies further needs. Call light within reach.
--- NOTE | 2018-10-27 18:44 | NUR ---
Report given to MEGAN Bryant.
--- NOTE | 2018-10-27 22:52 | NUR ---
Patient assessed around 1949. Denied having pain and discomfort at that time. Patient has been in bed. Bed alarm is on, and has alerted staff when patient was trying to go to the bathroom. Continent so far this shift. Denies having burning, pain, and discomfort with urination. Resting in bed at this time. Call light is within reach.
[2018-10-28 03:54] VITALS: BP 125/51; PULSE 103; TEMP 99
--- NOTE | 2018-10-28 05:33 | NUR ---
Patient has been awake most of the night. Each time this nurse checked on patient, eyes were open. Denied having any needs, and was smiling and pleasant. Has tried getting up to take self to bathroom, and does not remember to call for assistance. Bed alarm notified staff, and staff assisted with toileting. Continent so far this shift. Used walker for ambulation. Urine is clear and yellow. Denies having burning, pain, and discomfort with urination. Denies having feelings of urinary frequency, urgency, and retention. Continues on IV Rocephin per orders. In bed at this time. Call light is within reach. Bed alarm is on. Denies having any needs or concerns at this time.
[2018-10-28 06:17] LABS: BASO % 0.8 % (0.0-2.0); GRAN # 2.7 (1.4-6.5); HEMOGLOBIN 10.4 g/dl (12.5-16.0); LYMPH # 0.5 (1.2-3.4); LYMPH % 12.8 % (20.0-51.0); MEAN CELL VOLUME 89 fl (80.0-100.0); MEAN CORPUSCULAR HEMOGLOBIN 30 pg (27.0-31.0); MEAN CORPUSCULAR HGB CONC 34 g/dl (33.0-37.0); MEAN PLATELET VOLUME 11.2 fl (7.4-10.4); MONO # 0.8 (0.1-0.6); MONO % 19.1 % (1.7-9.3); RED BLOOD COUNT 3.45 M/mm3 (4.10-5.30); REDCELL DISTRIBUTION WIDTH-CV 15.1 % (11.5-14.5)
[2018-10-28 06:20] LABS: HEMATOCRIT 30.8 % (37.0-47.0)
[2018-10-28 06:21] LABS: PLATELET COUNT 36 K/mm3 (130-400)
--- NOTE | 2018-10-28 06:24 | NUR ---
Platelets this morning 36, critical low, but have been critical low since admit. Call placed to [facility]. No new orders at this time.
[2018-10-28 06:32] LABS: ALBUMIN 2.8 gm/dL (3.5-5.0); BILIRUBIN,TOTAL 1.5 mg/dL (0.0-1.0); CALCIUM 8.4 mg/dL (8.4-10.2); CREATININE, serum 0.81 (0.52-1.25); POTASSIUM 3.8 mmol/L (3.4-5.0); TOTAL PROTEIN 5.4 gm/dL (6.4-8.2)
[2018-10-28 07:20] VITALS: BP 143/62; PULSE 77; TEMP 99.1
--- NOTE | 2018-10-28 07:51 | NUR ---
Assessment complete. Pt is alert but unable to answer orientation questions appropriately. Denies having any pain at this time. Breathing is even and unlabored on room air. Tele on. LW INT flushes easily, remains free of complications, and is CDI. Generalized bruising to her back and hips from a past fall. Pt is sitting up in the bed eating her breakfast at this time and she denies further needs. Call light within reach, will continue to monitor.
[2018-10-28 11:10] VITALS: BP 131/56; PULSE 80; TEMP 98.3
[2018-10-28 15:30] VITALS: BP 153/67; PULSE 85; TEMP 98.4
--- NOTE | 2018-10-28 17:51 | NUR ---
Pt has been resting on and off throughout the day. She has remained free of pain. Has been able to walk more with PT today. Pt helped to the restroom; dede provided. Pt is now back in the bed finishing her dinner at this time and she denies further needs. Call light within reach.
[2018-10-28 19:06] VITALS: BP 115/52; PULSE 77; TEMP 97.2
--- NOTE | 2018-10-28 19:13 | NUR ---
Report given to MEGAN Hannah.
--- NOTE | 2018-10-28 19:41 | NUR ---
Patient resting in bed, assessment completed- lungs clear, abomdinal sounds active, pulses +3, cap refill <3 seconds, denies pain. Evening medications amdinistered. Bed alarm on- pt impulsive. No needs at this time.
[2018-10-28 23:28] VITALS: BP 139/88; PULSE 81; TEMP 98.5
[2018-10-29 04:41] VITALS: BP 125/59; PULSE 76; TEMP 98.2
--- NOTE | 2018-10-29 05:14 | NUR ---
Pt slept for most of the night, VSS, afebrile. Bed alarm on, call light in reach. NO needs at this time.
[2018-10-29 06:05] LABS: GRAN # 2.1 (1.4-6.5); GRAN % 67.7 % (42.2-75.2); LYMPH # 0.5 (1.2-3.4); LYMPH % 16.3 % (20.0-51.0); MEAN CELL VOLUME 90 fl (80.0-100.0); MEAN CORPUSCULAR HGB CONC 33 g/dl (33.0-37.0); MONO # 0.5 (0.1-0.6); MONO % 14.7 % (1.7-9.3); RED BLOOD COUNT 3.22 M/mm3 (4.10-5.30); REDCELL DISTRIBUTION WIDTH-CV 15.3 % (11.5-14.5)
[2018-10-29 06:09] LABS: ALBUMIN 2.6 gm/dL (3.5-5.0); BILIRUBIN,TOTAL 1.3 mg/dL (0.0-1.0); CALCIUM 8.3 mg/dL (8.4-10.2); CREATININE, serum 0.87 (0.52-1.25); POTASSIUM 3.7 mmol/L (3.4-5.0); TOTAL PROTEIN 5.1 gm/dL (6.4-8.2)
[2018-10-29 06:16] LABS: HEMATOCRIT 28.9 % (37.0-47.0); HEMOGLOBIN 9.5 g/dl (12.5-16.0); MEAN CORPUSCULAR HEMOGLOBIN 30 pg (27.0-31.0)
[2018-10-29 06:17] LABS: PLATELET COUNT 34 K/mm3 (130-400)
--- NOTE | 2018-10-29 06:50 | NUR ---
Received report. Patient is noted to be resting in bed with eyes closed and head of bed slightly elevated. Call light is within reach.
--- NOTE | 2018-10-29 07:11 | NUR ---
Report given to MEGAN Barnett. Patient asleep at this time.
[2018-10-29 07:58] VITALS: BP 126/61; PULSE 82; TEMP 98.2
--- NOTE | 2018-10-29 08:43 | NUR ---
Patient is sitting up in bed eating breakfast, Family is at bedside. Denies pain. Heart is regular with murmur noted. Lungs are clear bilaterally, lowwer lungs are slightly diminisined, bowel sounds are audible to all quadrats. Pedal pulses are palpable bilaterally. Speech is clear. No needs identified, call light is within reach.
[2018-10-29 10:12] VITALS: BP 126/61; PULSE 88; TEMP 98.2
[2018-10-29] MEDS ORDERED: DIFLUCAN200 MG PO (10:42)
--- NOTE | 2018-10-29 11:05 | NUR ---
CINDY and CINDY velasquez attended clinical rounds. The patient's abyroeak-qf-ebs, Leslye Sherwood, report that they are interested in home health services for PT and shelter. CINDY and CINDY velasquez then followed up with the patient's yfvimnow-oz-qil and presented her with Medicare.gov's list of home health agencies that serve [place]. Leslye Sherwood reports that she has had [facility] and chose them again. CINDY then contacted Becki at [facility]. Becki reports that they would not be able to provide shelter. CINDY informed the patient's bhieeelw-yt-hsl. Leslye Sherwood then chose [facility]. CINDY contacted and faxed a referral to Doug at [facility]. Doug reports that they can accept the patient for services. The patient is to discharge back home with her tkdehkfl-gc-wap and son today, 10/29, with home health services for shelter/PT through [facility]. CINDY presented and explained the IM form to the patient's vaqsyfmw-gg-igv. Leslye Sherwood verbalized understanding, signed, and she was provided a copy. No additional needs at this time.
--- NOTE | 2018-10-29 12:36 | NUR ---
Discontinued intermittent IV. Catheter intact on LT wrist. No redness, drainage, or edema present. Secured with 2x2 gauze, 2in bandaid, tape, and coban. Pt. denies pain at the moment. Primary nurse informed.
--- NOTE | 2018-10-29 13:13 | NUR ---
Patient discharged home at 1305, all belongings sent with daughter. Patient took to private vehicle via wheelchair.
--- NOTE | 2018-10-29 13:41 | NUR ---
Primary nurse was assisted with [phone] patient care by [employer] [facility] Rosa Isela Piper and [employer] instructor Argelia Valencia RN-.
== END 2018-10-29 13:05 | disposition home health service (06) | DRG 871 ==
LOC: COL.ER 22:20 → SURG 10-26 02:02 → ICU 10-26 02:02 → MEDICAL 10-27 15:28
PROVIDERS: Emergency Medicine; Nurse Practitioner Family; ADMIT Hospitalist
DX: A41.9 Sepsis, unspecified organism (principal); G93.41 Metabolic encephalopathy; B37.49 Other urogenital candidiasis; E87.2 Acidosis; Z66 Do not resuscitate; D61.818 Other pancytopenia; K76.6 Portal hypertension; I85.10 Secondary esophageal varices without bleeding; K74.60 Unspecified cirrhosis of liver; D69.6 Thrombocytopenia, unspecified; E11.9 Type 2 diabetes mellitus without complications; E03.9 Hypothyroidism, unspecified; F03.90 Unspecified dementia, unspecified severity, without behavioral disturbance, psychotic disturbance, mood disturbance, and anxiety; J45.909 Unspecified asthma, uncomplicated; F41.8 Other specified anxiety disorders; Z85.3 Personal history of malignant neoplasm of breast; Z85.828 Personal history of other malignant neoplasm of skin; D64.9 Anemia, unspecified; K72.90 Hepatic failure, unspecified without coma
CPT/HCPCS: 99222-AI; 99231-AI; 99232-AI; 99239; A4216; J0696; J1450; J1815; J7030